=== PATIENT | female | born 1950 | race Caucasian/White ===

== ENCOUNTER 2016-07-01 12:55 | Emergency (ER) | payer OTHER ==
[~2016-07-01] VITALS: Ht 149.9 cm; Wt 77.1 kg
[~2016-07-01 12:55] MED LIST: FLEXERIL10 MG PO; MEDROL4 M2 PO; VICODIN5-300 PO; VISTARIL50 M1 PO
[2016-07-01 13:00] VITALS: BP 171/90
--- NOTE | 2016-07-01 13:32 | ED SKIN/ALLERGY COMPLAINT ---
History of Present Illness General Chief Complaint: General Adult Stated Complaint: "I HAVE A RASH ON THE TOP OF MY LEG" RIGHT LEG Source: patient Exam Limitations: no limitations Vital Signs & Intake/Output Vital Signs & Intake/Output Vital Signs Date Time Temp Pulse Resp B/P Pulse O2 O2 Flow FiO2 Ox Delivery Rate 07/01 1300 97.0 73 20 171/90 95 Room Air Allergies Coded Allergies: cortisone (HIVES, SOB, SWELLING 05/03/16) peanut (ANAPHYLAXIS 05/03/16) Reconcile Medications Hydrocodone/Acetaminophen (Vicodin 5-300 MG Tablet) 5 MG-300 MG TABLET 1 TAB PO Q6 PRN PAIN Hydroxyzine Pamoate (Vistaril) 50 MG CAPSULE 1 CAP PO TID PRN ITCHING Methylprednisolone. (Medrol) 4 MG TAB.DS.PK 1 DP PO AD DERMATITIS 6 on day 1 then reduce by one tablet daily until gone Valacyclovir HCl (Valtrex) 1,000 MG TABLET 1 TAB PO TID HERPES ZOSTER Triage Note: PT STATES THAT SHE HAS A RASH ON POSTERIOR RIGHT THIGH. PT STATES THAT IT IS PAINFUL AND ITCHY. RASH STARTED YESTERDAY Triage Nurses Notes Reviewed? yes Onset: Gradual Duration: getting worse Timing: recent history Severity: severe Severity Numbers: 8 Location: extremities Possible Factors: no cause identified HPI: Patient is a 65-year-old female who presents emergency room with a gradual onset of a one day history of behind the leg red vesicular painful rash. Patient states that the last 24 hours the rash has spread and number of vesicles. Patient has taken ibuprofen with minimal relief of symptoms. Patient does complain of pruritus and mild nausea due to the pain. Denies any fever chills denies any discharge denies any exposure to poison reyes new pets new detergents or allergies Patient does state that she's had shingles in the past and feels very similar to previous SYMPTOMS Past History Travel History Traveled to [place] past 21 day No Medical History Any Pertinent Medical History? 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 No Review of Systems Review of Systems Constitutional: Reports: no symptoms. EENTM: Reports: no symptoms. Respiratory: Reports: no symptoms. Cardiovascular: Reports: no symptoms. GI: Reports: no symptoms. Genitourinary: Reports: no symptoms. Musculoskeletal: Reports: no symptoms. Skin: Reports: see HPI, lesions, rash. Neurological/Psychological: Reports: no symptoms. Hematologic/Endocrine: Reports: no symptoms. Immunologic/Allergic: Reports: no symptoms. All Other Systems: Reviewed and Negative Physical Exam Physical Exam General Appearance: no apparent distress, alert Skin: intact Comments: Well-developed well-nourished person in no acute distress HEENT: Normal EENT exam, Neck: Supple, no lymphadenopathy, normal range of motion without pain or tenderness Back: Nontender, no CVA tenderness. Cardiovascular: Regular rate and rhythms no murmurs rubs or gallops, normal JVP Respiratory: Chest nontender. No respiratory distress.breath sounds clear to auscultation bilaterally Abdomen: Soft, nontender nondistended, no appreciable organomegaly. Normal bowel sounds. No ascites Extremity: No edema, no calf tenderness to palpation, normal and equal pulses. Neuro: Alert oriented x3, motor sensory normal, Skin: See diagram below Psych: Mood and affect is normal, memory and judgment is normal. Diagram Body: 1) #7 scattered linear dermatomal pattern of erythematous vesicles noted no active discharge Progress Differential Diagnosis: abscess/cellulitis, allergic reaction, anaphylaxis, angioedema, contact dermatitis, drug reaction, erythema multiforme, lyme disease , meningitis/sepsis, piyriasis rosea, RMSF, scarlet fever, shingles, syphilis/ gonococcemia, urticaria, HHERPES ZOSTER Plan of Care: Due to history of present illness and exam findings patient has concerns of right leg herpes zoster. Departure Departure Disposition: HOME OR SELF CARE Condition: Stable Clinical Impression Primary Impression: Herpes zoster Referrals: DENNIS GROVES DO (PCP/Family) Additional Instructions: As discussed begin the prescription of Valtrex as directed for the full course and begin the prescription of Vicodin for pain. Continue [id number] ibuprofen as directed for pain. If no better on Saturday follow-up with primary care doctor. Prescriptions are waiting at [facility] pharmacy. If symptoms worsen return to emergency room Departure Forms: Customer Survey General Discharge Information Prescriptions: Current Visit Scripts Valacyclovir HCl (Valtrex) 1 TAB PO TID #21 TAB Hydrocodone/Acetaminophen (Vicodin 5-300 MG Tablet) 1 TAB PO Q6 PRN PAIN #12 TAB
[2016-07-01] MEDS ORDERED: VICODIN 5-3001 EACH PO (13:47)
[2016-07-01] MEDS ORDERED: VALTREX1000 MG PO (13:47)
== END 2016-07-01 13:54 ==
LOC: ERH 12:55
DX: B02.9 Zoster without complications (principal)

== ENCOUNTER 2016-07-04 17:15 | Emergency (ER) | payer OTHER ==
[~2016-07-04] VITALS: Ht 149.9 cm; Wt 77.1 kg
[~2016-07-04 17:15] MED LIST changes: +VALTREX1000 MG PO; +VICODIN 5-3001 EACH PO
[2016-07-04 17:20] VITALS: BP 168/94
[2016-07-04] MEDS ORDERED: CYCLOBENZAPRINE10 M1 PO (17:24)
[2016-07-04] MEDS ORDERED: IBUPROFEN600 M1 PO (17:24)
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
== END 2016-07-04 17:36 ==
LOC: ERH 17:15
DX: S16.1XXA Strain of muscle, fascia and tendon at neck level, initial encounter (principal); V49.50XA Passenger injured in collision with unspecified motor vehicles in traffic accident, initial encounter